=== PATIENT | male | born 1935 | race Caucasian/White ===

== ENCOUNTER 2017-11-02 09:07 | Inpatient (IN) | payer MEDICARE, OTHER ==
[~2017-11-02] VITALS: Ht 172.7 cm; Wt 68.2 kg
[~2017-11-02 09:07] MED LIST: ALBU2.5V13 NEB; ALPR-624 PO; AMLO5TAB PO; BUSP10TA11 PO; CALC300T4 PO; CARB15DR95 EACHEYE; CHOL10002 PO; DOCU-28 PO; EFF37.5XRC PO; GABA600T2 PO; LACT1CAP26 PO; MINE120C3 TOP; MIRT15TA8 PO; MULT1TAB74 PO; OXYC40TA48 PO; PANT-47 PO; QUET50TA PO; SOLI10TA2 PO; SYN0.088T PO; TERA2CAP4 PO; VITA100T3 PO; VITC500T PO; WARF2.5T PO; [UNRECOGNIZED DRUG - CODE] LEFT EAR
[2017-11-02] MEDS ORDERED: albuterol 2.5 MG/3 ML nebule NEB ONE ×2 (09:10→11:25)
[2017-11-02] MEDS ORDERED: ipratropium/albuterol 3ml nebule NEB ONE (09:10)
[2017-11-02] MEDS ORDERED: normal saline 1000ML IV soln IVB ONE (09:10)
[2017-11-02] MEDS ORDERED: methylPREDNISolone sod succ 125mg/2ml vial IV ONE (09:10)
[2017-11-02 09:37] LABS: BASOPHILS % (AUTO) 0.3 % (0-1); EOSINOPHILS # (AUTO) 0.1 X10'3 (0-0.9); EOSINOPHILS % (AUTO) 1.1 % (0-6); HEMATOCRIT 37.9 % (42.0-52.0); LYMPHOCYTES # (AUTO) 1.4 X10'3 (1.1-4.8); MEAN CORPUSCULAR HEMOGLOBIN 29.3 PG (27.0-31.0); MEAN CORPUSCULAR HGB CONC 31.6 % (33.0-36.5); MEAN CORPUSCULAR VOLUME 92.5 FL (78-98); MEAN PLATELET VOLUME 7.6 FL (7.4-10.4); MONOCYTES # (AUTO) 1.2 X10'3 (0-0.9); MONOCYTES % (AUTO) 8.9 % (2-12); NEUTROPHILS # (AUTO) 10.4 X10'3 (1.8-7.7); NEUTROPHILS % (AUTO) 78.7 % (42-75); PLATELET COUNT 174 X10'3 (140-440); RED CELL DISTRIBUTION WIDTH 15.2 % (11.5-14.5); WHITE BLOOD COUNT 13.2 X10'3 (4.5-11.0)
[2017-11-02 09:48] LABS: PARTIAL THROMBOPLASTIN TIME 30 SECONDS (22-32); PROTHROMBIN TIME 10.5 SECONDS (9.0-12.0)
[2017-11-02 09:53] LABS: ALANINE AMINOTRANSFERASE 39 U/L (12-78); ALBUMIN 2.8 G/DL (3.4-5.0); ALBUMIN/GLOBULIN RATIO 0.7 (1.1-1.5); ALKALINE PHOSPHATASE 134 IU/L (46-116); ANION GAP 4 (8-16); ASPARTATE AMINO TRANSFERASE 22 U/L (10-37); BILIRUBIN,TOTAL 0.5 MG/DL (0.1-1.0); BLOOD UREA NITROGEN 18 MG/DL (7-18); BUN/CREATININE RATIO 13.7 (5.4-32.0); CHLORIDE 103 MMOL/L (99-107); CREATININE 1.31 MG/DL (0.60-1.10); GLUCOSE 157 MG/DL (70-104); POTASSIUM 4.5 MMOL/L (3.5-5.1); SODIUM 143 MMOL/L (135-145); TOTAL CARBON DIOXIDE 36.3 MMOL/L (24-32); eGFR 52 ML/MIN
[2017-11-02 10:14] LABS: PLATELET ESTIMATE NORMAL; TOTAL CELLS COUNTED 100
[2017-11-02] MEDS ORDERED: levoFLOXACIN-Levaquin 500mg/D5 100 ML IV ONE (10:40)
[2017-11-02] MEDS ORDERED: oxyCODONE IR 5mg (immed. release) tablet PO PRN (11:05)
[2017-11-02] MEDS ORDERED: albuterol 2.5 MG/3 ML nebule ONE (11:23)
[2017-11-02] MEDS ORDERED: magnesium hydroxide 30ml (MOM) UD suspension PO PRN (11:40)
[2017-11-02] MEDS ORDERED: magnesium 1gm/100ml D5W IVPB 100 ML IV PRN (11:40)
[2017-11-02] MEDS: normal saline 1000ml 1,000 ML IV SCH ×2 (11:40→19:45)
[2017-11-02] MEDS ORDERED: magnesium Cl slow-release 64mg tablet PO PRN (11:40)
[2017-11-02] MEDS ORDERED: potassium Cl 40MEQ/NS 500ml 500 ML IV PRN ×2 (11:40)
[2017-11-02] MEDS ORDERED: potassium Cl 20 mEq SR tablet PO PRN ×2 (11:40)
[2017-11-02] MEDS ORDERED: acetaminophen 325mg tablet PO PRN ×2 (11:40)
[2017-11-02] MEDS ORDERED: morphine 2 MG/ML inj. syringe IV PRN (11:40)
[2017-11-02] MEDS ORDERED: HYDROcodone/acetaminophen 5mg/325mg tablet PO PRN (11:40)
[2017-11-02] MEDS ORDERED: magnesium 4gm in 100ml NS 100 ML IV PRN (11:40)
[2017-11-02] MEDS ORDERED: mag hydrox/Alum hydrox/simeth 30ml oral suspension PO PRN (11:40)
[2017-11-02] MEDS: morphine 2 MG/ML inj. syringe IV PRN ×2 (12:37→19:05)
[2017-11-02] MEDS: HYDROcodone/acetaminophen 10/325mg tab PO PRN (13:24)
[2017-11-02 13:30] LABS: CLARITY,URINE CLOUDY (Clear); COLOR,URINE YELLOW (Yellow); GLUCOSE, URINE NEGATIVE (Neg); KETONES,URINE NEGATIVE (Neg); LEUKOCYTE ESTERASE ,URINE MODERATE (Neg); NITRITES, URINE POSITIVE (Neg); OCCULT BLOOD,URINE MODERATE (Neg); PROTEIN,URINE 100 mg/dl (Neg); UROBILINOGEN,URINE 0.2 E.U/dL (0.2-1.0)
[2017-11-02 13:34] LABS: UA COLLECTION TYPE URINAL
[2017-11-02 13:36] LABS: WBC,URINE 50-100 /HPF (0-4)
[2017-11-02 13:37] LABS: BACTERIA,URINE 4+ /HPF (Neg); MUCUS STRANDS MODERATE /LPF (Neg); RENAL CELLS, URINE FEW /HPF; SQUAMOUS EPITHELIAL CELL,UR MODERATE /LPF (FEW); TRANSITIONAL EPI CELLS,URINE FEW /HPF
[2017-11-02 13:38] LABS: AMORPHOUS URATES 1+; FINE GRANULAR CAST 0-3 /LPF (NEGATIVE)
[2017-11-02] MEDS: albuterol 2.5 MG/3 ML nebule NEB SCH ×2 (14:57→21:33)
[2017-11-02] MEDS ORDERED: FURO-150 PO (16:08)
[2017-11-02] MEDS ORDERED: ALBU8HFA PO (16:08)
[2017-11-02] MEDS ORDERED: OXYC-658 PO (16:08)
[2017-11-02] MEDS ORDERED: OMEP20TA23 PO (16:08)
[2017-11-02] MEDS ORDERED: ASPI81TA52 PO (16:08)
[2017-11-02] MEDS ORDERED: POTA10TA19 PO (16:08)
[2017-11-02] MEDS ORDERED: calcium carbonate 500mg chew tablet PO PRN (19:20)
[2017-11-02] MEDS ORDERED: ALPRAZolam 0.5mg tablet PO PRN (19:20)
[2017-11-02] MEDS ORDERED: CARBOXYMETHYLCELLULOSE SODIUM 15 ML DROPS EACHEYE PRN (19:20)
[2017-11-02] MEDS ORDERED: carbamide peroxide 15ml bottle LEFT EAR PRN (19:20)
[2017-11-02 19:30] VITALS: BP 91/61
[2017-11-02] MEDS: docusate sod 100mg capsule PO SCH (19:46)
[2017-11-02] MEDS: busPIRone 5mg tablet PO SCH (19:46)
[2017-11-02] MEDS: heparin, porcine 5000 units/ml vial SQ SCH (19:47)
[2017-11-02] MEDS ORDERED: polyvinyl alcohol ophthalmic drops 15ml bottle EACHEYE PRN (19:49)
[2017-11-02] MEDS ORDERED: non-formulary drug (Buspirone Hcl* (Buspar*) 1 TAB) PO SCH (20:00)
[2017-11-02] MEDS: terazosin 5mg capsule PO SCH (21:00)
[2017-11-02] MEDS ORDERED: non-formulary drug (Gabapentin 1 TAB) PO SCH (21:00)
[2017-11-02] MEDS ORDERED: TERAZOSIN HCL 5 MG PO SCH (21:00)
[2017-11-02] MEDS: gabapentin 300mg capsule PO SCH (21:29)
[2017-11-02] MEDS ORDERED: glucagon, human recombinant 1mg kit SUBCUT PRN (21:50)
[2017-11-02] MEDS ORDERED: dextrose ORAL solution 15 GM/59 ML bottle PO PRN ×2 (21:50)
[2017-11-02] MEDS ORDERED: dextrose 50%-water 50ml dispensing syringe IV PRN ×2 (21:50)
[2017-11-02] MEDS ORDERED: MESSAGE TO PHARMACY PO ONE (21:50)
[2017-11-02] MEDS: insulin Lispro (HumaLOG) vial - multi-dose SQ SCH (22:38)
[2017-11-02] MEDS: insulin glargine (Lantus) pen - multi-dose SQ SCH (22:39)
[2017-11-03] VITALS: BP 137/62
[2017-11-03] MEDS: albuterol 2.5 MG/3 ML nebule NEB SCH ×4 (02:55→20:41)
[2017-11-03 05:06] LABS: BASOPHILS % (AUTO) 0 % (0-1); EOSINOPHILS # (AUTO) 0.1 X10'3 (0-0.9); EOSINOPHILS % (AUTO) 0.7 % (0-6); HEMATOCRIT 34.1 % (42.0-52.0); LYMPHOCYTES # (AUTO) 0.7 X10'3 (1.1-4.8); LYMPHOCYTES % (AUTO) 5.1 % (21-51); MEAN CORPUSCULAR HEMOGLOBIN 29.3 PG (27.0-31.0); MEAN CORPUSCULAR HGB CONC 32.3 % (33.0-36.5); MEAN CORPUSCULAR VOLUME 90.8 FL (78-98); MEAN PLATELET VOLUME 8.6 FL (7.4-10.4); MONOCYTES # (AUTO) 0.9 X10'3 (0-0.9); NEUTROPHILS # (AUTO) 12.8 X10'3 (1.8-7.7); NEUTROPHILS % (AUTO) 88.2 % (42-75); PLATELET COUNT 169 X10'3 (140-440); RED BLOOD COUNT 3.76 X10'6 (4.70-6.10); RED CELL DISTRIBUTION WIDTH 14.5 % (11.5-14.5); WHITE BLOOD COUNT 14.6 X10'3 (4.5-11.0)
[2017-11-03 05:45] LABS: ALANINE AMINOTRANSFERASE 38 U/L (12-78); ALBUMIN 2.5 G/DL (3.4-5.0); ALBUMIN/GLOBULIN RATIO 0.6 (1.1-1.5); ALKALINE PHOSPHATASE 109 IU/L (46-116); ANION GAP 6 (8-16); ASPARTATE AMINO TRANSFERASE 20 U/L (10-37); BILIRUBIN,TOTAL 0.4 MG/DL (0.1-1.0); BLOOD UREA NITROGEN 25 MG/DL (7-18); BUN/CREATININE RATIO 18.7 (5.4-32.0); CALCIUM 9.1 MG/DL (8.5-10.1); CHLORIDE 103 MMOL/L (99-107); CREATININE 1.34 MG/DL (0.60-1.10); GLUCOSE 129 MG/DL (70-104); POTASSIUM 4.3 MMOL/L (3.5-5.1); SODIUM 142 MMOL/L (135-145); TOTAL CARBON DIOXIDE 32.6 MMOL/L (24-32); TOTAL PROTEIN 6.5 G/DL (6.4-8.2); eGFR 51 ML/MIN
[2017-11-03] MEDS: HYDROcodone/acetaminophen 10/325mg tab PO PRN ×3 (06:24→22:49)
[2017-11-03 07:25] VITALS: BP 142/66
[2017-11-03] MEDS ORDERED: CefTRIAXone 2gm/D5W 50ml 50 ML IV SCH (08:00)
[2017-11-03] MEDS: K and/or MAG REPLACEMENT MC SCH (08:00)
[2017-11-03] MEDS ORDERED: non-formulary drug (Amlodipine Besylate 1 TABLET) PO SCH (08:00)
[2017-11-03] MEDS: aspirin 81mg tablet.DR PO SCH (09:07)
[2017-11-03] MEDS: levoTHYROXINE 88mcg tablet PO SCH (09:07)
[2017-11-03] MEDS: heparin, porcine 5000 units/ml vial SQ SCH ×2 (09:07→19:37)
[2017-11-03] MEDS: busPIRone 5mg tablet PO SCH ×2 (09:07→19:36)
[2017-11-03] MEDS: amLODIPine 5mg tablet PO SCH (09:08)
[2017-11-03] MEDS: lactobacillus rhamnosus 10,000 MMU CELLS/CAPSULE PO SCH ×2 (09:08→17:19)
[2017-11-03] MEDS: docusate sod 100mg capsule PO SCH ×2 (09:08→19:37)
[2017-11-03] MEDS: gabapentin 300mg capsule PO SCH ×3 (09:08→21:23)
[2017-11-03] MEDS: venlafaxine XR 37.5mg cap (Q24H) PO SCH (09:10)
[2017-11-03] MEDS: insulin Lispro (HumaLOG) vial - multi-dose SQ SCH (09:27)
[2017-11-03] MEDS ORDERED: azithromycin/NS 500mg/250ml 250 ML IV ONE (10:20)
[2017-11-03] MEDS: normal saline 1000ml 1,000 ML IV SCH (15:50)
[2017-11-03 18:00] VITALS: BP 150/78
[2017-11-03] MEDS: levoFLOXACIN-Levaquin 750MG/D5 150 ML IV SCH (18:49)
[2017-11-03] MEDS: piperacillin/tazo 3.375gm/50ml 50 ML IV SCH ×2 (19:05→19:09)
[2017-11-03] MEDS: insulin glargine (Lantus) pen - multi-dose SQ SCH (21:00)
[2017-11-03] MEDS: terazosin 5mg capsule PO SCH (21:23)
[2017-11-03] MEDS: ondansetron/PF 4mg/2ml inj IV PRN (21:24)
[2017-11-04] VITALS: BP 108/60
[2017-11-04] MEDS: normal saline 1000ml 1,000 ML IV SCH (00:17)
[2017-11-04] MEDS: albuterol 2.5 MG/3 ML nebule NEB SCH ×3 (02:15→15:11)
[2017-11-04] MEDS: piperacillin/tazo 3.375gm/50ml 50 ML IV SCH ×4 (02:24→20:12)
[2017-11-04] MEDS: HYDROcodone/acetaminophen 10/325mg tab PO PRN ×2 (05:24→20:36)
[2017-11-04 05:25] LABS: BASOPHILS % (AUTO) 0.1 % (0-1); EOSINOPHILS # (AUTO) 0.2 X10'3 (0-0.9); EOSINOPHILS % (AUTO) 1.9 % (0-6); HEMATOCRIT 32.5 % (42.0-52.0); HEMOGLOBIN 10.5 g/dl (14.0-17.9); LYMPHOCYTES # (AUTO) 1.1 X10'3 (1.1-4.8); LYMPHOCYTES % (AUTO) 9.2 % (21-51); MEAN CORPUSCULAR HEMOGLOBIN 29.3 PG (27.0-31.0); MEAN CORPUSCULAR HGB CONC 32.2 % (33.0-36.5); MONOCYTES # (AUTO) 0.9 X10'3 (0-0.9); MONOCYTES % (AUTO) 7.3 % (2-12); NEUTROPHILS # (AUTO) 10.2 X10'3 (1.8-7.7); NEUTROPHILS % (AUTO) 81.5 % (42-75); PLATELET COUNT 174 X10'3 (140-440); RED BLOOD COUNT 3.57 X10'6 (4.70-6.10); RED CELL DISTRIBUTION WIDTH 14.9 % (11.5-14.5); WHITE BLOOD COUNT 12.5 X10'3 (4.5-11.0)
[2017-11-04 05:52] LABS: ALANINE AMINOTRANSFERASE 30 U/L (12-78); ALBUMIN 2.2 G/DL (3.4-5.0); ALBUMIN/GLOBULIN RATIO 0.6 (1.1-1.5); ALKALINE PHOSPHATASE 95 IU/L (46-116); ANION GAP 4 (8-16); ASPARTATE AMINO TRANSFERASE 26 U/L (10-37); BILIRUBIN,TOTAL 0.2 MG/DL (0.1-1.0); BLOOD UREA NITROGEN 31 MG/DL (7-18); BUN/CREATININE RATIO 19.5 (5.4-32.0); CALCIUM 8.3 MG/DL (8.5-10.1); CHLORIDE 106 MMOL/L (99-107); CREATININE 1.59 MG/DL (0.60-1.10); GLUCOSE 98 MG/DL (70-104); MAGNESIUM 1.8 MG/DL (1.5-2.4); POTASSIUM 4.2 MMOL/L (3.5-5.1); SODIUM 144 MMOL/L (135-145); TOTAL CARBON DIOXIDE 34.5 MMOL/L (24-32); TOTAL PROTEIN 5.8 G/DL (6.4-8.2); eGFR 42 ML/MIN
[2017-11-04 07:00] VITALS: BP 131/76
[2017-11-04] MEDS: lactobacillus rhamnosus 10,000 MMU CELLS/CAPSULE PO SCH ×2 (07:33→17:36)
[2017-11-04] MEDS: aspirin 81mg tablet.DR PO SCH (07:33)
[2017-11-04] MEDS: amLODIPine 5mg tablet PO SCH (07:33)
[2017-11-04] MEDS: venlafaxine XR 37.5mg cap (Q24H) PO SCH (07:33)
[2017-11-04] MEDS: levoTHYROXINE 88mcg tablet PO SCH (07:33)
[2017-11-04] MEDS: gabapentin 300mg capsule PO SCH ×3 (07:34→20:11)
[2017-11-04] MEDS: busPIRone 5mg tablet PO SCH ×2 (07:34→20:11)
[2017-11-04] MEDS: docusate sod 100mg capsule PO SCH ×2 (07:34→20:12)
[2017-11-04] MEDS: heparin, porcine 5000 units/ml vial SQ SCH ×2 (07:35→20:12)
[2017-11-04] MEDS: K and/or MAG REPLACEMENT MC SCH (08:00)
[2017-11-04] MEDS: levoFLOXACIN-Levaquin 750MG/D5 150 ML IV SCH (08:55)
[2017-11-04 11:00] VITALS: BP 116/76
[2017-11-04] MEDS ORDERED: ipratropium/albuterol 3ml nebule NEB PRN (15:40)
[2017-11-04 20:00] VITALS: BP 120/70
[2017-11-04] MEDS: terazosin 5mg capsule PO SCH (20:11)
[2017-11-04] MEDS: insulin glargine (Lantus) pen - multi-dose SQ SCH (21:00)
[2017-11-05] VITALS: BP 100/62
[2017-11-05] MEDS: ondansetron/PF 4mg/2ml inj IV PRN (01:31)
[2017-11-05] MEDS: piperacillin/tazo 3.375gm/50ml 50 ML IV SCH ×4 (01:32→19:59)
[2017-11-05] MEDS: HYDROcodone/acetaminophen 10/325mg tab PO PRN ×3 (04:34→21:02)
[2017-11-05 06:09] LABS: BASOPHILS % (AUTO) 0.1 % (0-1); EOSINOPHILS # (AUTO) 0.2 X10'3 (0-0.9); EOSINOPHILS % (AUTO) 2.4 % (0-6); HEMATOCRIT 31.9 % (42.0-52.0); HEMOGLOBIN 10.3 g/dl (14.0-17.9); LYMPHOCYTES # (AUTO) 0.9 X10'3 (1.1-4.8); LYMPHOCYTES % (AUTO) 13.1 % (21-51); MEAN CORPUSCULAR HGB CONC 32.3 % (33.0-36.5); MEAN CORPUSCULAR VOLUME 89.8 FL (78-98); MEAN PLATELET VOLUME 8.5 FL (7.4-10.4); MONOCYTES # (AUTO) 0.8 X10'3 (0-0.9); MONOCYTES % (AUTO) 10.5 % (2-12); NEUTROPHILS # (AUTO) 5.3 X10'3 (1.8-7.7); NEUTROPHILS % (AUTO) 73.9 % (42-75); PLATELET COUNT 171 X10'3 (140-440); RED BLOOD COUNT 3.55 X10'6 (4.70-6.10); WHITE BLOOD COUNT 7.2 X10'3 (4.5-11.0)
[2017-11-05 06:29] LABS: ALANINE AMINOTRANSFERASE 32 U/L (12-78); ALBUMIN 2.3 G/DL (3.4-5.0); ALBUMIN/GLOBULIN RATIO 0.6 (1.1-1.5); ALKALINE PHOSPHATASE 85 IU/L (46-116); ANION GAP 4 (8-16); ASPARTATE AMINO TRANSFERASE 19 U/L (10-37); BILIRUBIN,TOTAL 0.3 MG/DL (0.1-1.0); BLOOD UREA NITROGEN 24 MG/DL (7-18); BUN/CREATININE RATIO 14.4 (5.4-32.0); CALCIUM 8.9 MG/DL (8.5-10.1); CHLORIDE 107 MMOL/L (99-107); CREATININE 1.67 MG/DL (0.60-1.10); GLUCOSE 107 MG/DL (70-104); POTASSIUM 4.1 MMOL/L (3.5-5.1); SODIUM 144 MMOL/L (135-145); TOTAL CARBON DIOXIDE 33.3 MMOL/L (24-32); TOTAL PROTEIN 6.1 G/DL (6.4-8.2); eGFR 39 ML/MIN
[2017-11-05 08:00] VITALS: BP 123/74
[2017-11-05] MEDS: K and/or MAG REPLACEMENT MC SCH (08:00)
[2017-11-05] MEDS: heparin, porcine 5000 units/ml vial SQ SCH ×2 (08:00→19:59)
[2017-11-05] MEDS: docusate sod 100mg capsule PO SCH ×3 (08:00→20:00)
[2017-11-05] MEDS: lactobacillus rhamnosus 10,000 MMU CELLS/CAPSULE PO SCH ×2 (09:14→17:54)
[2017-11-05] MEDS: amLODIPine 5mg tablet PO SCH (09:14)
[2017-11-05] MEDS: aspirin 81mg tablet.DR PO SCH (09:15)
[2017-11-05] MEDS: venlafaxine XR 37.5mg cap (Q24H) PO SCH (09:15)
[2017-11-05] MEDS: busPIRone 5mg tablet PO SCH (09:15)
[2017-11-05] MEDS: levoTHYROXINE 88mcg tablet PO SCH (09:15)
[2017-11-05] MEDS: gabapentin 300mg capsule PO SCH ×3 (09:16→20:57)
[2017-11-05 12:01] VITALS: BP 115/67
[2017-11-05] MEDS ORDERED: potassium Cl 20 mEq SR tablet PO PRN ×2 (15:45)
[2017-11-05] MEDS ORDERED: magnesium 1gm/100ml D5W IVPB 100 ML IV PRN (15:45)
[2017-11-05] MEDS ORDERED: magnesium 4gm in 100ml NS 100 ML IV PRN (15:45)
[2017-11-05] MEDS ORDERED: magnesium Cl slow-release 64mg tablet PO PRN (15:45)
[2017-11-05] MEDS ORDERED: potassium Cl 40MEQ/NS 500ml 500 ML IV PRN ×2 (15:45)
[2017-11-05] MEDS: ipratropium/albuterol 3ml nebule NEB SCH ×3 (16:00→23:45)
[2017-11-05] MEDS: busPIRone 15mg tablet PO SCH ×2 (19:59→20:12)
[2017-11-05] MEDS: terazosin 5mg capsule PO SCH (20:56)
[2017-11-05] MEDS: insulin glargine (Lantus) pen - multi-dose SQ SCH (21:00)
[2017-11-06 00:36] VITALS: BP 118/50
[2017-11-06] MEDS: piperacillin/tazo 3.375gm/50ml 50 ML IV SCH (01:43)
[2017-11-06] MEDS: ipratropium/albuterol 3ml nebule NEB SCH ×4 (03:05→15:35)
[2017-11-06 05:24] LABS: BASOPHILS % (AUTO) 0.5 % (0-1); EOSINOPHILS # (AUTO) 0.2 X10'3 (0-0.9); EOSINOPHILS % (AUTO) 3.9 % (0-6); HEMATOCRIT 30.3 % (42.0-52.0); HEMOGLOBIN 9.6 g/dl (14.0-17.9); LYMPHOCYTES # (AUTO) 1.5 X10'3 (1.1-4.8); LYMPHOCYTES % (AUTO) 24.7 % (21-51); MEAN CORPUSCULAR HEMOGLOBIN 28.8 PG (27.0-31.0); MEAN CORPUSCULAR HGB CONC 31.9 % (33.0-36.5); MEAN CORPUSCULAR VOLUME 90.2 FL (78-98); MEAN PLATELET VOLUME 8.3 FL (7.4-10.4); MONOCYTES # (AUTO) 0.6 X10'3 (0-0.9); MONOCYTES % (AUTO) 10.1 % (2-12); NEUTROPHILS # (AUTO) 3.8 X10'3 (1.8-7.7); NEUTROPHILS % (AUTO) 60.8 % (42-75); PLATELET COUNT 168 X10'3 (140-440); RED BLOOD COUNT 3.36 X10'6 (4.70-6.10); RED CELL DISTRIBUTION WIDTH 15.4 % (11.5-14.5); WHITE BLOOD COUNT 6.2 X10'3 (4.5-11.0)
[2017-11-06 06:02] LABS: ALANINE AMINOTRANSFERASE 24 U/L (12-78); ALBUMIN 2.2 G/DL (3.4-5.0); ALBUMIN/GLOBULIN RATIO 0.6 (1.1-1.5); ALKALINE PHOSPHATASE 72 IU/L (46-116); ANION GAP 4 (8-16); ASPARTATE AMINO TRANSFERASE 20 U/L (10-37); BILIRUBIN,TOTAL 0.3 MG/DL (0.1-1.0); BLOOD UREA NITROGEN 17 MG/DL (7-18); CALCIUM 8.5 MG/DL (8.5-10.1); CHLORIDE 106 MMOL/L (99-107); CREATININE 1.54 MG/DL (0.60-1.10); GLUCOSE 94 MG/DL (70-104); MAGNESIUM 2.1 MG/DL (1.5-2.4); POTASSIUM 4.1 MMOL/L (3.5-5.1); SODIUM 145 MMOL/L (135-145); TOTAL CARBON DIOXIDE 35.1 MMOL/L (24-32); TOTAL PROTEIN 5.7 G/DL (6.4-8.2); eGFR 43 ML/MIN
[2017-11-06 07:00] VITALS: BP 122/69
[2017-11-06] MEDS ORDERED: levoFLOXACIN-Levaquin 750MG/D5 150 ML IV SCH (08:00)
[2017-11-06] MEDS: docusate sod 100mg capsule PO SCH ×2 (08:00→08:18)
[2017-11-06] MEDS: K and/or MAG REPLACEMENT MC SCH (08:00)
[2017-11-06] MEDS: levoTHYROXINE 88mcg tablet PO SCH (08:19)
[2017-11-06] MEDS: amLODIPine 5mg tablet PO SCH (08:19)
[2017-11-06] MEDS: venlafaxine XR 37.5mg cap (Q24H) PO SCH (08:19)
[2017-11-06] MEDS: busPIRone 15mg tablet PO SCH (08:20)
[2017-11-06] MEDS: lactobacillus rhamnosus 10,000 MMU CELLS/CAPSULE PO SCH (08:20)
[2017-11-06] MEDS: aspirin 81mg tablet.DR PO SCH (08:20)
[2017-11-06] MEDS: gabapentin 300mg capsule PO SCH ×2 (08:20→12:41)
[2017-11-06] MEDS: heparin, porcine 5000 units/ml vial SQ SCH (08:21)
[2017-11-06] MEDS: HYDROcodone/acetaminophen 10/325mg tab PO PRN (08:38)
[2017-11-06 11:00] VITALS: BP 141/75
[2017-11-06] MEDS ORDERED: LEVO750T46 PO (12:50)
== END 2017-11-06 17:45 | disposition home health service (06) | DRG 871 ==
LOC: ER 09:07 → ED HOLD 11:24 → SUR 3N 19:15
PROVIDERS: ADMIT Internal Medicine; ATTEND Family Medicine
DX: A41.9 Sepsis, unspecified organism (principal); J96.01 Acute respiratory failure with hypoxia; J69.0 Pneumonitis due to inhalation of food and vomit; I13.0 Hypertensive heart and chronic kidney disease with heart failure and stage 1 through stage 4 chronic kidney disease, or unspecified chronic kidney disease; J44.1 Chronic obstructive pulmonary disease with (acute) exacerbation; N17.9 Acute kidney failure, unspecified; N39.0 Urinary tract infection, site not specified; I50.9 Heart failure, unspecified; N18.3 Chronic kidney disease, stage 3 (moderate); B96.20 Unspecified Escherichia coli [E. coli] as the cause of diseases classified elsewhere; E03.9 Hypothyroidism, unspecified; E11.22 Type 2 diabetes mellitus with diabetic chronic kidney disease; F17.210 Nicotine dependence, cigarettes, uncomplicated; F32.9 Major depressive disorder, single episode, unspecified; Z60.2 Problems related to living alone; F41.9 Anxiety disorder, unspecified; G89.4 Chronic pain syndrome; M19.90 Unspecified osteoarthritis, unspecified site; W18.39XA Other fall on same level, initial encounter; Z66 Do not resuscitate; M43.12 Spondylolisthesis, cervical region; B19.20 Unspecified viral hepatitis C without hepatic coma; M54.9 Dorsalgia, unspecified; R74.8 Abnormal levels of other serum enzymes; Z99.81 Dependence on supplemental oxygen; Z88.6 Allergy status to analgesic agent; Z79.890 Hormone replacement therapy; Z79.01 Long term (current) use of anticoagulants; Z79.899 Other long term (current) drug therapy; Z71.6 Tobacco abuse counseling; Y93.89 Activity, other specified; Y92.89 Other specified places as the place of occurrence of the external cause; Y99.8 Other external cause status
CPT/HCPCS: 36415; 70450; 71045; 71250; 72050; 80053; 81001; 82948; 83036; 83605; 83735; 83880; 84145; 84443; 84484; 85025; 85610; 85730; 87040; 87070; 87077; 87088; 87185; 87186; 93005; 94640; 94760; 96365; 96375; 97116; 97161; 97530; 99285; A6212; A6258; J0456; J0696; J1644; J1815; J1956; J2270; J2405; J2543; J2930; J7030

== ENCOUNTER 2017-12-27 11:59 | Emergency (ER) | payer MEDICARE, OTHER ==
[~2017-12-27] VITALS: Ht 172.7 cm; Wt 65.0 kg
[~2017-12-27 11:59] MED LIST changes: +ALBU8HFA PO; +ASPI81TA52 PO; +FURO-150 PO; -MIRT15TA8 PO; +OMEP20TA23 PO; +OXYC-658 PO; -OXYC40TA48 PO; -PANT-47 PO; +POTA10TA19 PO; -SOLI10TA2 PO; -WARF2.5T PO
[2017-12-27] MEDS ORDERED: methylPREDNISolone sod succ 125mg/2ml vial IV ONE (12:40)
[2017-12-27] MEDS ORDERED: ipratropium/albuterol 3ml nebule NEB ONE (12:40)
[2017-12-27] MEDS ORDERED: normal saline 1000ML IV soln IVB ONE (12:40)
[2017-12-27 13:10] LABS: BASOPHILS % (AUTO) 0.1 % (0-1); EOSINOPHILS # (AUTO) 0.2 X10'3 (0-0.9); EOSINOPHILS % (AUTO) 1.3 % (0-6); HEMATOCRIT 39.5 % (42.0-52.0); HEMOGLOBIN 12.5 g/dl (14.0-17.9); LYMPHOCYTES % (AUTO) 7.1 % (21-51); MEAN CORPUSCULAR HEMOGLOBIN 28.2 PG (27.0-31.0); MEAN CORPUSCULAR HGB CONC 31.6 % (33.0-36.5); MEAN CORPUSCULAR VOLUME 89.2 FL (78-98); MEAN PLATELET VOLUME 8.8 FL (7.4-10.4); MONOCYTES # (AUTO) 0.7 X10'3 (0-0.9); MONOCYTES % (AUTO) 4.7 % (2-12); NEUTROPHILS # (AUTO) 12.5 X10'3 (1.8-7.7); NEUTROPHILS % (AUTO) 86.8 % (42-75); PLATELET COUNT 187 X10'3 (140-440); RED BLOOD COUNT 4.43 X10'6 (4.70-6.10); RED CELL DISTRIBUTION WIDTH 14.3 % (11.5-14.5); WHITE BLOOD COUNT 14.4 X10'3 (4.5-11.0)
[2017-12-27 13:29] LABS: ALANINE AMINOTRANSFERASE 31 U/L (12-78); ALBUMIN/GLOBULIN RATIO 0.7 (1.1-1.5); ALKALINE PHOSPHATASE 116 IU/L (46-116); ANION GAP 3 (8-16); ASPARTATE AMINO TRANSFERASE 20 U/L (10-37); BILIRUBIN,TOTAL 0.5 MG/DL (0.1-1.0); BLOOD UREA NITROGEN 25 MG/DL (7-18); BUN/CREATININE RATIO 21.9 (5.4-32.0); CALCIUM 9.6 MG/DL (8.5-10.1); CHLORIDE 102 MMOL/L (99-107); CREATININE 1.14 MG/DL (0.60-1.10); GLUCOSE 125 MG/DL (70-104); POTASSIUM 4.4 MMOL/L (3.5-5.1); SODIUM 142 MMOL/L (135-145); TOTAL CARBON DIOXIDE 37.5 MMOL/L (24-32); TOTAL PROTEIN 7.2 G/DL (6.4-8.2); eGFR 61 ML/MIN
[2017-12-27] MEDS ORDERED: GUAI120015 PO (13:42)
[2017-12-27] MEDS ORDERED: ALBU6.7H INH (13:42)
[2017-12-27] MEDS ORDERED: LEVO500T2 PO (13:42)
[2017-12-27] MEDS ORDERED: PRED20TA PO (13:42)
[2017-12-27 18:06] VITALS: BP 140/87
== END 2017-12-27 18:12 | disposition home or self-care (01) ==
LOC: ER 11:59
DX: J18.1 Lobar pneumonia, unspecified organism (principal); J44.1 Chronic obstructive pulmonary disease with (acute) exacerbation; I12.9 Hypertensive chronic kidney disease with stage 1 through stage 4 chronic kidney disease, or unspecified chronic kidney disease; E11.22 Type 2 diabetes mellitus with diabetic chronic kidney disease; N18.9 Chronic kidney disease, unspecified; M19.90 Unspecified osteoarthritis, unspecified site; Z86.19 Personal history of other infectious and parasitic diseases; Z98.890 Other specified postprocedural states; Z60.2 Problems related to living alone; Z79.82 Long term (current) use of aspirin; Z79.899 Other long term (current) drug therapy; Z88.8 Allergy status to other drugs, medicaments and biological substances; Z88.5 Allergy status to narcotic agent
CPT/HCPCS: 36415; 71045; 80053; 83605; 85025; 87040; 93005; 94640; 94760; 96374; 99285; J2930

== ENCOUNTER 2018-01-19 12:16 | Inpatient (IN) | payer MEDICARE, OTHER ==
[~2018-01-19] VITALS: Ht 170.2 cm; Wt 58.0 kg
[~2018-01-19 12:16] MED LIST changes: +ALBU6.7H INH; +GUAI120015 PO
[2018-01-19 13:19] LABS: BASOPHILS % (AUTO) 0.3 % (0-1); EOSINOPHILS # (AUTO) 0.1 X10'3 (0-0.9); EOSINOPHILS % (AUTO) 1.7 % (0-6); HEMATOCRIT 34.2 % (42.0-52.0); HEMOGLOBIN 10.6 g/dl (14.0-17.9); LYMPHOCYTES # (AUTO) 1.2 X10'3 (1.1-4.8); LYMPHOCYTES % (AUTO) 15.7 % (21-51); MEAN CORPUSCULAR HEMOGLOBIN 27.9 PG (27.0-31.0); MEAN CORPUSCULAR HGB CONC 31.1 % (33.0-36.5); MEAN CORPUSCULAR VOLUME 89.8 FL (78-98); MEAN PLATELET VOLUME 9.2 FL (7.4-10.4); MONOCYTES # (AUTO) 0.7 X10'3 (0-0.9); MONOCYTES % (AUTO) 9.4 % (2-12); NEUTROPHILS # (AUTO) 5.6 X10'3 (1.8-7.7); NEUTROPHILS % (AUTO) 72.9 % (42-75); PLATELET COUNT 137 X10'3 (140-440); RED BLOOD COUNT 3.81 X10'6 (4.70-6.10); RED CELL DISTRIBUTION WIDTH 16.9 % (11.5-14.5); WHITE BLOOD COUNT 7.7 X10'3 (4.5-11.0)
[2018-01-19 13:35] LABS: PARTIAL THROMBOPLASTIN TIME 25 SECONDS (22-32); PROTHROMBIN TIME 10.3 SECONDS (9.0-12.0)
[2018-01-19 13:42] LABS: ALANINE AMINOTRANSFERASE 56 U/L (12-78); ALBUMIN 3.4 G/DL (3.4-5.0); ALKALINE PHOSPHATASE 123 IU/L (46-116); ANION GAP 7 (8-16); ASPARTATE AMINO TRANSFERASE 32 U/L (10-37); BILIRUBIN,TOTAL 0.3 MG/DL (0.1-1.0); BLOOD UREA NITROGEN 35 MG/DL (7-18); BUN/CREATININE RATIO 16.9 (5.4-32.0); CALCIUM 8.3 MG/DL (8.5-10.1); CHLORIDE 102 MMOL/L (99-107); CREATININE 2.07 MG/DL (0.60-1.10); GLUCOSE 153 MG/DL (70-104); POTASSIUM 4.6 MMOL/L (3.5-5.1); SODIUM 141 MMOL/L (135-145); TOTAL CARBON DIOXIDE 32.5 MMOL/L (24-32); TOTAL PROTEIN 6.7 G/DL (6.4-8.2); eGFR 31 ML/MIN
[2018-01-19 13:44] LABS: MAGNESIUM 2.2 MG/DL (1.5-2.4)
[2018-01-19 14:45] LABS: CLARITY,URINE CLEAR (Clear); COLOR,URINE YELLOW (Yellow); GLUCOSE, URINE NEGATIVE (Neg); KETONES,URINE NEGATIVE (Neg); LEUKOCYTE ESTERASE ,URINE NEGATIVE (Neg); NITRITES, URINE NEGATIVE (Neg); OCCULT BLOOD,URINE NEGATIVE (Neg); PH,URINE 5.5 (4.8-8.0); PROTEIN,URINE NEGATIVE (Neg); UROBILINOGEN,URINE 0.2 E.U/dL (0.2-1.0)
[2018-01-19 14:49] LABS: UA COLLECTION TYPE CLN CATCH MIDSTREAM
[2018-01-19] MEDS ORDERED: aspirin 81mg tab.chew PO ONE (15:40)
[2018-01-19] MEDS ORDERED: magnesium hydroxide 30ml (MOM) UD suspension PO PRN (16:55)
[2018-01-19] MEDS ORDERED: potassium Cl 40MEQ/NS 500ml 500 ML IV PRN ×2 (16:55)
[2018-01-19] MEDS ORDERED: acetaminophen 325mg tablet PO PRN (16:55)
[2018-01-19] MEDS ORDERED: magnesium Cl slow-release 64mg tablet PO PRN (16:55)
[2018-01-19] MEDS ORDERED: ondansetron/PF 4mg/2ml inj IV PRN (16:55)
[2018-01-19] MEDS ORDERED: magnesium 4gm in 100ml NS 100 ML IV PRN (16:55)
[2018-01-19] MEDS ORDERED: potassium Cl 20 mEq SR tablet PO PRN ×2 (16:55)
[2018-01-19] MEDS ORDERED: mag hydrox/Alum hydrox/simeth 30ml oral suspension PO PRN (16:55)
[2018-01-19] MEDS ORDERED: dextrose 50%-water 50ml dispensing syringe IV PRN ×2 (17:10)
[2018-01-19] MEDS ORDERED: insulin Lispro (HumaLOG) vial - multi-dose SQ SCH (17:10)
[2018-01-19] MEDS ORDERED: MESSAGE TO PHARMACY PO ONE (17:10)
[2018-01-19] MEDS ORDERED: oxyCODONE IR 5mg (immed. release) tablet PO PRN (17:10)
[2018-01-19] MEDS ORDERED: glucagon, human recombinant 1mg kit SUBCUT PRN (17:10)
[2018-01-19] MEDS ORDERED: dextrose ORAL solution 15 GM/59 ML bottle PO PRN ×2 (17:10)
[2018-01-19] MEDS ORDERED: ALPRAZolam 0.5mg tablet PO PRN (17:25)
[2018-01-19] MEDS ORDERED: TERA5CAP4 PO (18:16)
[2018-01-19] MEDS ORDERED: OSC500T PO (18:16)
[2018-01-19] MEDS ORDERED: OXYC-658 PO (18:16)
[2018-01-19] MEDS ORDERED: BUSP10TA11 PO (18:16)
[2018-01-19] MEDS ORDERED: QUET25TA PO (18:16)
[2018-01-19] MEDS ORDERED: ALPR-624 PO (18:16)
[2018-01-19] MEDS ORDERED: POTA10TA15 PO (18:16)
[2018-01-19 19:45] VITALS: BP 133/56
[2018-01-19 19:52] LABS: HEMOGLOBIN A1C 5.7 % (4.5-6.2)
[2018-01-19] MEDS: furosemide 40mg/4ml inj IV SCH (20:11)
[2018-01-19] MEDS: heparin, porcine 5000 units/ml vial SQ SCH (20:12)
[2018-01-19] MEDS: insulin glargine (Lantus) pen - multi-dose SQ SCH (21:00)
[2018-01-19 22:00] VITALS: BP 114/64
[2018-01-20] MEDS: methylPREDNISolone sod succ/PF 40mg inj. IV SCH ×3 (00:13→16:55)
[2018-01-20] MEDS: oxyCODONE IR 5mg (immed. release) tablet PO PRN ×4 (00:15→21:18)
[2018-01-20 02:00] VITALS: BP 123/49
[2018-01-20 06:00] VITALS: BP 123/67
[2018-01-20 06:06] LABS: BASOPHILS % (AUTO) 0.2 % (0-1); EOSINOPHILS % (AUTO) 0.1 % (0-6); HEMATOCRIT 32.7 % (42.0-52.0); HEMOGLOBIN 10.3 g/dl (14.0-17.9); LYMPHOCYTES # (AUTO) 0.4 X10'3 (1.1-4.8); LYMPHOCYTES % (AUTO) 6.8 % (21-51); MEAN CORPUSCULAR HGB CONC 31.4 % (33.0-36.5); MEAN CORPUSCULAR VOLUME 89.3 FL (78-98); MEAN PLATELET VOLUME 9.1 FL (7.4-10.4); MONOCYTES % (AUTO) 0.9 % (2-12); NEUTROPHILS # (AUTO) 4.9 X10'3 (1.8-7.7); PLATELET COUNT 132 X10'3 (140-440); RED BLOOD COUNT 3.67 X10'6 (4.70-6.10); RED CELL DISTRIBUTION WIDTH 16.9 % (11.5-14.5); WHITE BLOOD COUNT 5.3 X10'3 (4.5-11.0)
[2018-01-20 06:36] LABS: ALANINE AMINOTRANSFERASE 51 U/L (12-78); ALBUMIN 3.1 G/DL (3.4-5.0); ALKALINE PHOSPHATASE 116 IU/L (46-116); ANION GAP 2 (8-16); ASPARTATE AMINO TRANSFERASE 28 U/L (10-37); BILIRUBIN,TOTAL 0.3 MG/DL (0.1-1.0); BLOOD UREA NITROGEN 36 MG/DL (7-18); BUN/CREATININE RATIO 20.1 (5.4-32.0); CALCIUM 8.4 MG/DL (8.5-10.1); CHLORIDE 102 MMOL/L (99-107); CREATININE 1.79 MG/DL (0.60-1.10); GLUCOSE 198 MG/DL (70-104); MAGNESIUM 2.1 MG/DL (1.5-2.4); POTASSIUM 5.2 MMOL/L (3.5-5.1); SODIUM 142 MMOL/L (135-145); TOTAL CARBON DIOXIDE 37.8 MMOL/L (24-32); TOTAL PROTEIN 6.3 G/DL (6.4-8.2); eGFR 36 ML/MIN
[2018-01-20] MEDS: levoTHYROXINE 88mcg tablet PO SCH (07:38)
[2018-01-20] MEDS: heparin, porcine 5000 units/ml vial SQ SCH ×2 (07:39→19:46)
[2018-01-20] MEDS: furosemide 40mg/4ml inj IV SCH ×2 (07:56→19:45)
[2018-01-20] MEDS ORDERED: K and/or MAG REPLACEMENT MC SCH (08:00)
[2018-01-20] MEDS ORDERED: nitroGLYCERIN 0.4mg SUBLingual tab SL PRN (09:15)
[2018-01-20] MEDS ORDERED: metoprolol tartrate 1mg/ml inj IV PRN (09:15)
[2018-01-20] MEDS ORDERED: aminophylline 250mg/10ml inj. IV PRN (09:15)
[2018-01-20] MEDS ORDERED: sodium polystyrene sulfonate 15gm/60ml oral suspension PO ONE (09:15)
[2018-01-20] MEDS ORDERED: regadenoson 0.4mg/5ml syringe IV ONE (09:15)
[2018-01-20 11:00] VITALS: BP 129/72
[2018-01-20 15:00] VITALS: BP 136/51
[2018-01-20] MEDS ORDERED: carbamide peroxide 15ml bottle LEFT EAR PRN (15:05)
[2018-01-20] MEDS ORDERED: CARBOXYMETHYLCELLULOSE SODIUM 15 ML DROPS EACHEYE PRN (15:05)
[2018-01-20] MEDS ORDERED: BUSPIRONE HCL PO PRN (15:05)
[2018-01-20] MEDS: venlafaxine XR 37.5mg cap (Q24H) PO SCH (15:05)
[2018-01-20] MEDS ORDERED: calcium carbonate 500mg tablet PO PRN (15:05)
[2018-01-20] MEDS ORDERED: oxyCODONE IR 5mg (immed. release) tablet PO PRN (15:05)
[2018-01-20] MEDS ORDERED: busPIRone 15mg tablet PO PRN (15:50)
[2018-01-20] MEDS: lactobacillus rhamnosus 10,000 MMU CELLS/CAPSULE PO SCH (16:54)
[2018-01-20 18:00] VITALS: BP 117/63
[2018-01-20] MEDS: docusate sod 100mg capsule PO SCH (19:45)
[2018-01-20] MEDS: carVEDilol 3.125mg tablet PO SCH (19:45)
[2018-01-20] MEDS ORDERED: vitamin D (cholecalciferol) 1,000 unit tablet PO SCH (20:00)
[2018-01-20] MEDS ORDERED: CHOLECALCIFEROL PO SCH (20:00)
[2018-01-20] MEDS: insulin glargine (Lantus) pen - multi-dose SQ SCH (21:00)
[2018-01-20] MEDS ORDERED: QUEtiapine 25mg tablet PO SCH (21:00)
[2018-01-20] MEDS ORDERED: terazosin 5mg capsule PO SCH (21:00)
[2018-01-20 22:00] VITALS: BP 108/45
[2018-01-21] MEDS: methylPREDNISolone sod succ/PF 40mg inj. IV SCH ×2 (00:09→07:47)
[2018-01-21 02:00] VITALS: BP 135/59
[2018-01-21 06:35] LABS: BASOPHILS % (AUTO) 0.1 % (0-1); EOSINOPHILS % (AUTO) 0.5 % (0-6); HEMATOCRIT 33.9 % (42.0-52.0); HEMOGLOBIN 10.8 g/dl (14.0-17.9); LYMPHOCYTES # (AUTO) 0.5 X10'3 (1.1-4.8); LYMPHOCYTES % (AUTO) 8.7 % (21-51); MEAN CORPUSCULAR HGB CONC 31.7 % (33.0-36.5); MEAN CORPUSCULAR VOLUME 88.4 FL (78-98); MEAN PLATELET VOLUME 9.6 FL (7.4-10.4); MONOCYTES # (AUTO) 0.3 X10'3 (0-0.9); MONOCYTES % (AUTO) 4.6 % (2-12); NEUTROPHILS # (AUTO) 5.3 X10'3 (1.8-7.7); NEUTROPHILS % (AUTO) 86.1 % (42-75); PLATELET COUNT 132 X10'3 (140-440); RED BLOOD COUNT 3.84 X10'6 (4.70-6.10); RED CELL DISTRIBUTION WIDTH 16.6 % (11.5-14.5); WHITE BLOOD COUNT 6.2 X10'3 (4.5-11.0)
[2018-01-21 07:05] LABS: ALANINE AMINOTRANSFERASE 46 U/L (12-78); ALKALINE PHOSPHATASE 98 IU/L (46-116); ANION GAP 5 (8-16); ASPARTATE AMINO TRANSFERASE 28 U/L (10-37); BILIRUBIN,TOTAL 0.4 MG/DL (0.1-1.0); BLOOD UREA NITROGEN 45 MG/DL (7-18); BUN/CREATININE RATIO 27.8 (5.4-32.0); CALCIUM 8.2 MG/DL (8.5-10.1); CHLORIDE 100 MMOL/L (99-107); CREATININE 1.62 MG/DL (0.60-1.10); GLUCOSE 169 MG/DL (70-104); POTASSIUM 3.7 MMOL/L (3.5-5.1); SODIUM 144 MMOL/L (135-145); TOTAL CARBON DIOXIDE 38.8 MMOL/L (24-32); eGFR 41 ML/MIN
[2018-01-21] MEDS ORDERED: pantoprazole 40mg Tablet.DR PO SCH (07:30)
[2018-01-21] MEDS: carVEDilol 3.125mg tablet PO SCH (07:33)
[2018-01-21] MEDS: docusate sod 100mg capsule PO SCH (07:33)
[2018-01-21] MEDS: levoTHYROXINE 88mcg tablet PO SCH (07:35)
[2018-01-21] MEDS: lactobacillus rhamnosus 10,000 MMU CELLS/CAPSULE PO SCH (07:35)
[2018-01-21] MEDS: furosemide 40mg/4ml inj IV SCH (07:35)
[2018-01-21] MEDS: heparin, porcine 5000 units/ml vial SQ SCH (07:44)
[2018-01-21] MEDS: venlafaxine XR 37.5mg cap (Q24H) PO SCH (07:48)
[2018-01-21] MEDS ORDERED: non-formulary drug (Omeprazole Magnesium (Prilosec Otc) 1 TAB) PO SCH (08:00)
[2018-01-21] MEDS ORDERED: levoTHYROXINE 88mcg tablet PO SCH (08:00)
[2018-01-21] MEDS ORDERED: aspirin 81mg tablet.DR PO SCH (08:00)
[2018-01-21] MEDS ORDERED: PRED10TA23 PO (12:01)
[2018-01-21] MEDS ORDERED: COR3.125T PO (12:01)
[2018-01-21] MEDS ORDERED: FURO-150 PO (12:01)
[2018-01-21] MEDS ORDERED: ASPI-1265 PO (12:03)
== END 2018-01-21 12:31 | disposition left against medical advice (07) | DRG 291 ==
LOC: ER 12:16 → ED HOLD 16:54 → PCU 3S 19:44
PROVIDERS: ADMIT Internal Medicine; ATTEND Internal Medicine
DX: I13.0 Hypertensive heart and chronic kidney disease with heart failure and stage 1 through stage 4 chronic kidney disease, or unspecified chronic kidney disease (principal); J96.01 Acute respiratory failure with hypoxia; I50.21 Acute systolic (congestive) heart failure; J44.1 Chronic obstructive pulmonary disease with (acute) exacerbation; E03.9 Hypothyroidism, unspecified; E11.22 Type 2 diabetes mellitus with diabetic chronic kidney disease; E11.42 Type 2 diabetes mellitus with diabetic polyneuropathy; F17.200 Nicotine dependence, unspecified, uncomplicated; F41.9 Anxiety disorder, unspecified; Z60.2 Problems related to living alone; I27.81 Cor pulmonale (chronic); Z53.21 Procedure and treatment not carried out due to patient leaving prior to being seen by health care provider; N18.9 Chronic kidney disease, unspecified; B19.20 Unspecified viral hepatitis C without hepatic coma; F32.9 Major depressive disorder, single episode, unspecified; M19.90 Unspecified osteoarthritis, unspecified site; R74.8 Abnormal levels of other serum enzymes; Z88.5 Allergy status to narcotic agent; Z79.899 Other long term (current) drug therapy; Z79.82 Long term (current) use of aspirin; Z87.01 Personal history of pneumonia (recurrent); Z71.6 Tobacco abuse counseling
CPT/HCPCS: 36415; 71045; 80053; 81003; 82948; 83036; 83605; 83735; 83880; 84132; 84145; 84443; 84484; 85025; 85610; 85730; 87040; 87502; 87503; 93005; 93306; 97116; 97161; 97530; 99285; G0378; J1644; J1815; J1940; J2405; J2920

== ENCOUNTER 2018-03-24 21:08 | Inpatient (IN) | payer MEDICARE, OTHER | END 2018-03-25 09:02 | disposition left against medical advice (07) | LOC: ER 21:08 → ED HOLD 22:15 ==

== ENCOUNTER 2018-03-27 12:11 | Inpatient (IN) | payer MEDICARE, OTHER | END 2018-03-31 16:30 | disposition home or self-care (01) | LOC: PCU 3S 03-29 07:15 → ER 12:11 → PCU 3S 03-29 19:50 → ED HOLD 15:08 | DX: G93.41 Metabolic encephalopathy (principal); J96.21 Acute and chronic respiratory failure with hypoxia; I21.A1 Myocardial infarction type 2; J96.22 Acute and chronic respiratory failure with hypercapnia ==